=== PATIENT | male | born 1955 | race Caucasian/White ===

== ENCOUNTER 2017-01-17 19:09 | Emergency (ER) | payer OTHER ==
[~2017-01-17] VITALS: Ht 188 cm; Wt 99.5 kg
[2017-01-17] MEDS ORDERED: SODIUM CHLORIDE 0.9% 1,000ML IVBOLUS ONE (20:00)
[2017-01-17] MEDS ORDERED: DIPH,PERTUSS(ACELL),TET VAC/PF 0.5 ML IM-VACC ONE ×2 (20:00→21:15)
[2017-01-17] MEDS ORDERED: SODIUM CHLORIDE FLUSH 10ML SYR IVF ONE (20:00)
[2017-01-17 20:33] LABS: HEMOGLOBIN 14.8 g/dL (13.7-18.0)
[2017-01-17 20:39] LABS: BLOOD UREA NITROGEN 13 mg/dL (7-18)
[2017-01-17] MEDS ORDERED: CEFTAROLINE 600 MG in SODIUM CHLORIDE 0.9% 100 ML IV ONE (21:30)
[2017-01-17] MEDS ORDERED: morphine SULFATE 10 MG/ML, 1ML IVPush ONE (21:30)
[2017-01-17] MEDS ORDERED: ONDANSETRON 2MG/ML, 2ML IVPush ONE (21:30)
[2017-01-17] MEDS ORDERED: KETOROLAC 30 MG/1 ML IVPush ONE (21:30)
[2017-01-17] MEDS ORDERED: MORPHINE SULFATE 4 MG/ML, 1ML ONE (21:42)
[2017-01-17] MEDS ORDERED: KETOROLAC 30 MG/1 ML ONE (21:43)
[2017-01-17] MEDS ORDERED: ONDANSETRON 2MG/ML, 2ML ONE (21:43)
[2017-01-18 00:31] VITALS: BP 128/84
== END 2017-01-18 00:34 | disposition home or self-care (01) ==
LOC: ED 22:58
DX: S61.411A Laceration without foreign body of right hand, initial encounter (principal); L03.113 Cellulitis of right upper limb; I10 Essential (primary) hypertension; W26.0XXA Contact with knife, initial encounter; Y93.89 Activity, other specified; Y92.89 Other specified places as the place of occurrence of the external cause; Y99.9 Unspecified external cause status
CPT/HCPCS: 36415; 73130; 80048; 82040; 83605; 85025; 87040; 87070; 87077; 87186; 87205; 90471; 90715; 96361; 96365; 96375; 99285; J0712; J1885; J2270; J2405; J7030

== ENCOUNTER 2018-10-03 20:10 | Emergency (ER) | payer OTHER ==
[~2018-10-03] VITALS: Ht 188 cm; Wt 115.0 kg
[2018-10-03] MEDS ORDERED: LIDOCAINE 1%-EPI 1:100K, 20ML SQ ONE (20:30)
[2018-10-03] MEDS ORDERED: LIDOCAINE-MPF 1%, 5ML ONE (21:41)
[2018-10-03] MEDS ORDERED: CEPHALEXIN 500 MG CAPSULE PO ONE (22:30)
[2018-10-03] MEDS ORDERED: CEPHALEXIN 500 MG CAPSULE ONE (22:31)
[2018-10-03] MEDS ORDERED: SULFAMETH./TRIMETHOPRIM DS 800MG/160MG TABLET ONE (22:32)
[2018-10-03 22:46] VITALS: BP 151/88
[2018-10-03] MEDS ORDERED: SULFAMETH./TRIMETHOPRIM DS 800MG/160MG TABLET PO ONE (23:00)
== END 2018-10-03 22:48 | disposition home or self-care (01) ==
LOC: ED 20:40
DX: L03.312 Cellulitis of back [any part except buttock and flank] (principal); I10 Essential (primary) hypertension; F17.200 Nicotine dependence, unspecified, uncomplicated; Z72.9 Problem related to lifestyle, unspecified
CPT/HCPCS: 10060; 76536; 99284